=== PATIENT | male | born 1950 | race Two or more races ===

== ENCOUNTER 2020-03-25 12:03 | Emergency (ER) | payer MEDICARE, OTHER ==
[~2020-03-25] VITALS: Ht 160 cm; Wt 76.7 kg
[~2020-03-25 12:03] MED LIST: [UNRECOGNIZED DRUG - REMARK]
--- NOTE | 2020-03-25 12:41 | NUR ---
this is a 69 yr old male with hx of diabetes. per daughter symptom onset of 5 days. symptoms include kelly, dark stool which pt denies is blood, body aches, lack of appitite, and chills. pt states exposure 2 weeks ago at [facility] where 3 other members have tested positive. daughter brought pt in as she is concerned about pts kidneys and the fact that he is a diabetic.
[2020-03-25 13:22] LABS: BASOPHILS % (AUTO) 0 % (0-1); EOSINOPHILS % (AUTO) 0 % (1-7); LYMPHOCYTES % (AUTO) 30 % (22-44); MEAN CORPUSCULAR HEMOGLOBIN 27.3 pg (27.5-34.5); MEAN CORPUSCULAR HGB CONC 33.3 g/dL (33.2-36.2); MEAN PLATELET VOLUME 7.8 fL (7.4-10.4); MONOCYTES % (AUTO) 10 % (2-9); NEUTROPHILS % (AUTO) 60 % (42-75); PLATELET COUNT 205 x10^3/uL (130-400); RED CELL DISTRIBUTION WIDTH 14.7 % (9.4-14.8)
[2020-03-25 13:23] LABS: MD NO
[2020-03-25] MEDS ORDERED: CEFTRIAXONE PMX 1GM/50ML 50 ML ONE (13:23)
[2020-03-25 13:27] LABS: ALANINE AMINOTRANSFERASE 38 U/L (12-78); ALBUMIN 3.3 g/dL (3.4-5.0); ANION GAP 7 mmol/L (5-15); CALCIUM 8.2 mg/dL (8.5-10.1); CHLORIDE 100 mmol/L (98-107); CREATININE 0.92 mg/dL (0.7-1.3)
[2020-03-25] MEDS ORDERED: CEFTRIAXONE PMX 1GM/50ML 50 ML IV ONE (13:30)
[2020-03-25] MEDS ORDERED: AZITHROMYCIN 500 MG in SODIUM CHLORIDE 0.9% 250 ML IV ONE (13:30)
[2020-03-25 13:34] LABS: ALKALINE PHOSPHATASE 52 U/L (45-117); BILIRUBIN,TOTAL 0.5 mg/dL (0.2-1.0); TOTAL PROTEIN 8.3 g/dL (6.4-8.2)
--- NOTE | 2020-03-25 13:43 | NUR ---
ANTIBIOTICS STARTED AFTER BLOOD CULTURES X 2 WERE DRAWN. PT'S FAMILY UPDATED ON POC.
--- NOTE | 2020-03-25 14:23 | NUR ---
TASK RN: REPORT TO ADRIANA TAMEZ
[2020-03-25] MEDS ORDERED: SODIUM CHLORIDE 0.9% 1,000ML IVBOLUS ONE (14:30)
[2020-03-25 15:15] VITALS: BP 128/77
== END 2020-03-25 15:18 | disposition home or self-care (01) ==
LOC: ED 12:54
DX: U07.1 COVID-19 (principal); J12.9 Viral pneumonia, unspecified; R51.9 Headache, unspecified; R11.0 Nausea; E11.9 Type 2 diabetes mellitus without complications; R50.9 Fever, unspecified; M79.10 Myalgia, unspecified site; R94.31 Abnormal electrocardiogram [ECG] [EKG]; R63.0 Anorexia
CPT/HCPCS: 71045; 80053; 82728; 83605; 83615; 83880; 84145; 85025; 86140; 87040; 87635; 93005; 96365; 96367; 99285; J0456; J0696; J7030; J7050; 96361; 96375

== ENCOUNTER 2020-06-19 09:03 | Emergency (ER) | payer MEDICARE ==
[~2020-06-19] VITALS: Ht 162.6 cm; Wt 81.3 kg
[2020-06-19] MEDS ORDERED: KETOROLAC 30 MG/1 ML IM ONE (10:00)
[2020-06-19] MEDS ORDERED: METHOCARBAMOL 750 MG TABLET PO ONE (10:00)
[2020-06-19] MEDS ORDERED: METHOCARBAMOL 750 MG TABLET ONE (10:01)
[2020-06-19] MEDS ORDERED: KETOROLAC 30 MG/1 ML ONE (10:01)
--- NOTE | 2020-06-19 10:03 | NUR ---
PT GOING TO XRAY
[2020-06-19 10:20] VITALS: BP 138/81
--- NOTE | 2020-06-19 10:20 | NUR ---
PT BACK FROM XRAY. MEDS ADMIN PER JUN. PT AMBULATED TO RESTROOM WITH STEADY GAIT.
--- NOTE | 2020-06-19 10:29 | NUR ---
MD AT BEDSIDE TO UPDATE PT ON POC.
--- NOTE | 2020-06-19 10:29 | NUR ---
ALL RESULTS ARE BACK AT THIS TIME. CHART UP FOR RECHECK.
== END 2020-06-19 11:03 | disposition home or self-care (01) ==
LOC: ED 09:27
DX: M48.54XA Collapsed vertebra, not elsewhere classified, thoracic region, initial encounter for fracture (principal); M62.830 Muscle spasm of back; I10 Essential (primary) hypertension; E11.9 Type 2 diabetes mellitus without complications
CPT/HCPCS: 71046; 72072; 96372; 99284; J1885